=== PATIENT | male | born 1995 | race Caucasian/White ===

== ENCOUNTER 2017-04-19 12:44 | Emergency (ER) | payer MEDICAID, OTHER ==
[~2017-04-19] VITALS: Ht 167.6 cm; Wt 77.3 kg
[~2017-04-19 12:44] MED LIST: NO MEDS
[2017-04-19] MEDS ORDERED: IBUPROFEN 800 MG TABLET PO ONE (13:15)
[2017-04-19 13:17] VITALS: BP 149/55
== END 2017-04-19 14:20 | disposition home or self-care (01) ==
LOC: EMS 12:46
DX: S60.032A Contusion of left middle finger without damage to nail, initial encounter (principal); R03.0 Elevated blood-pressure reading, without diagnosis of hypertension; W22.8XXA Striking against or struck by other objects, initial encounter; Y93.89 Activity, other specified; Y92.89 Other specified places as the place of occurrence of the external cause; Y99.8 Other external cause status
CPT/HCPCS: 99284